=== PATIENT | female | born 1940 | race African-American/Black ===

== ENCOUNTER 2022-11-02 17:33 | Inpatient (IN) | payer OTHER, MEDICAID ==
[~2022-11-02] VITALS: Ht 154.9 cm; Wt 77.6 kg
[2022-11-02 19:18] LABS: BASOPHILS % 0.8 % (0.0-2.0); EOSINOPHILS % 0.4 % (0.0-5.0); HEMATOCRIT. 38.3 % (36.0-48.0); HEMOGLOBIN. 12.1 g/dL (12.0-16.0); LYMPHOCYTES % 43.9 % (20.0-50.0); MEAN CORPUSCULAR HEMOGLOBIN 24.4 pg (28.0-32.0); MEAN PLATELET VOLUME 8.4 fl (7.4-10.4); MONOCYTES % 5.7 % (2.0-8.0); NEUTROPHILS % 49.2 % (40.0-76.0); PLATELET 339 x1000/uL (130-400); RED BLOOD CELL COUNT 4.97 mill/uL (4.2-5.4); RED CELL DISTRIBUTION WIDTH 15.1 % (11.6-14.6)
[2022-11-02 19:24] LABS: CHLORIDE 109 mEq/L (98-107)
[2022-11-02] MEDS ORDERED: LABETALOL 5MG/ML SYR 20 MG/4 ML SYRINGE IV ONE (20:45)
[2022-11-02] MEDS ORDERED: ASPIRIN 81MG TABLET PO ONE (20:45)
[2022-11-03 11:55] VITALS: BP 166/99
[2022-11-03 12:00] VITALS: BP 166/99
[2022-11-03] MEDS ORDERED: HYDRALAZINE HCL 25MG TABLET PO SCH (14:00)
[2022-11-03] MEDS ORDERED: MECL-217 MT (14:31)
[2022-11-03] MEDS ORDERED: FLUO15CR2 TP (14:31)
[2022-11-03] MEDS ORDERED: ASPI-1497 PO (14:31)
[2022-11-03] MEDS ORDERED: OMEP40CA20 PO (14:31)
[2022-11-03] MEDS ORDERED: AMLO10TA80 PO (14:31)
[2022-11-03] MEDS ORDERED: UMEC1DIS INH (14:31)
[2022-11-03] MEDS ORDERED: HYDR25TA PO (14:31)
[2022-11-03] MEDS ORDERED: PARO40TA75 PO (14:31)
[2022-11-03] MEDS ORDERED: INSU100I22 SQ ×2 (14:31→14:44)
[2022-11-03] MEDS ORDERED: ALIR75PE5 SQ (14:31)
[2022-11-03] MEDS ORDERED: ALPR-340 PO (14:31)
[2022-11-03] MEDS ORDERED: CHOL2400 MC (14:31)
[2022-11-03] MEDS ORDERED: ONDA4TAB11 PO (14:31)
[2022-11-03] MEDS ORDERED: CETI10TA6 PO (14:31)
[2022-11-03] MEDS ORDERED: CARV12.545 PO (14:44)
[2022-11-03] MEDS ORDERED: EZET10TA13 PO (14:44)
[2022-11-03] MEDS ORDERED: CARV25TA47 PO (14:44)
[2022-11-03] MEDS ORDERED: INSU100C6 SQ (14:44)
[2022-11-03] MEDS ORDERED: ALBU90AE INH (14:44)
[2022-11-03] MEDS ORDERED: OMEG100017 PO (14:44)
[2022-11-03] MEDS ORDERED: FENO145T25 PO (14:44)
[2022-11-03] MEDS: ONDANSETRON HCL 4MG/2ML INJ IV PRN (14:56)
[2022-11-03] MEDS: ACETAMINOPHEN 325MG TABLET PO PRN (14:57)
[2022-11-03] MEDS: AMLODIPINE 10MG TABLET PO SCH (14:58)
[2022-11-03] MEDS ORDERED: DEXTROSE 50% WATER 50ML SYRINGE IV PRN (15:15)
[2022-11-03] MEDS: INSULIN LISPRO 100 UNITS/ML SUBCUT SCH ×2 (17:25→20:49)
[2022-11-03] MEDS: BLOOD SUGAR DIAGNOSTIC STRIP TEST SCH ×2 (17:25→20:49)
[2022-11-03] MEDS: OMEPRAZOLE 20MG CAPSULE EXTENDED RELEASE PO SCH (17:32)
[2022-11-03] MEDS: ENOXAPARIN 30MG/0.3ML SYR SUBCUT SCH (17:32)
[2022-11-03 17:35] LABS: T4 FREE 1.22 ng/dL (0.76-1.46)
[2022-11-03 20:00] VITALS: BP 126/71
[2022-11-03] MEDS: HYDRALAZINE HCL 50MG TABLET PO SCH (21:40)
[2022-11-04] VITALS: BP 112/46
[2022-11-04 04:00] VITALS: BP 156/62
[2022-11-04] MEDS: HYDRALAZINE HCL 50MG TABLET PO SCH ×3 (05:48→21:19)
[2022-11-04] MEDS: BLOOD SUGAR DIAGNOSTIC STRIP TEST SCH ×4 (06:41→21:19)
[2022-11-04] MEDS: INSULIN LISPRO 100 UNITS/ML SUBCUT SCH ×4 (06:42→21:19)
[2022-11-04 07:26] LABS: CLARITY URINE CLEAR (CLEAR); COLOR URINE YELLOW (YELLOW); KETONES URINE NEGATIVE (NEGATIVE); LEUKOCYTE ESTERASE URINE NEGATIVE (NEGATIVE); NITRITE URINE NEGATIVE (NEGATIVE); OCCULT BLOOD URINE NEGATIVE (NEGATIVE); PROTEIN URINE 1+ (NEGATIVE); SPECIFIC GRAVITY URINE 1.018 (1.005-1.030); UROBILINOGEN URINE 0.2 E.U./dL (0.2-1.0)
[2022-11-04 08:00] VITALS: BP 120/62
[2022-11-04] MEDS: AMLODIPINE 10MG TABLET PO SCH (09:15)
[2022-11-04] MEDS: OMEPRAZOLE 20MG CAPSULE EXTENDED RELEASE PO SCH (09:15)
[2022-11-04 10:45] LABS: BASOPHILS % 0.7 % (0.0-2.0); HEMATOCRIT. 38.8 % (36.0-48.0); LYMPHOCYTES % 33.9 % (20.0-50.0); MEAN CORPUSCULAR HEMOGLOBIN 24.5 pg (28.0-32.0); MEAN CORPUSCULAR VOLUME 78.9 fL (81.0-99.0); MEAN PLATELET VOLUME 8.5 fl (7.4-10.4); MONOCYTES % 6.7 % (2.0-8.0); NEUTROPHILS % 56.7 % (40.0-76.0); PLATELET 293 x1000/uL (130-400); RED BLOOD CELL COUNT 4.91 mill/uL (4.2-5.4); RED CELL DISTRIBUTION WIDTH 15.5 % (11.6-14.6)
[2022-11-04] MEDS ORDERED: BUDESONIDE 0.5MG/2ML NEB HHN SCH (12:15)
[2022-11-04] MEDS: ACETAMINOPHEN 325MG TABLET PO PRN (12:59)
[2022-11-04] MEDS ORDERED: LEVO-65 MT (13:47)
[2022-11-04] MEDS: LEVOFLOXACIN 500MG PREMIX 100 ML IV SCH (15:27)
[2022-11-04] MEDS: ENOXAPARIN 30MG/0.3ML SYR SUBCUT SCH (15:28)
[2022-11-04 16:00] VITALS: BP 123/60
[2022-11-04] MEDS ORDERED: NALOXONE HCL 0.4MG/ML VIAL IV PRN (16:30)
[2022-11-04] MEDS: TRAMADOL 50MG TABLET PO PRN (16:38)
[2022-11-04] MEDS: ONDANSETRON HCL 4MG/2ML INJ IV PRN (17:38)
[2022-11-04 20:00] VITALS: BP 100/66
[2022-11-04] MEDS: PROMETHAZINE HCL 6.25 MG/5 ML 118ML PO PRN (20:48)
[2022-11-05] VITALS: BP 103/60
[2022-11-05 04:00] VITALS: BP 124/63
[2022-11-05] MEDS: HYDRALAZINE HCL 50MG TABLET PO SCH ×3 (05:28→21:36)
[2022-11-05 06:47] LABS: BASOPHILS % 0.4 % (0.0-2.0); EOSINOPHILS % 2.5 % (0.0-5.0); HEMATOCRIT. 34.6 % (36.0-48.0); HEMOGLOBIN. 11.2 g/dL (12.0-16.0); LYMPHOCYTES % 39.9 % (20.0-50.0); MEAN CORPUSCULAR HEMOGLOBIN 24.8 pg (28.0-32.0); MEAN CORPUSCULAR VOLUME 76.3 fL (81.0-99.0); MEAN PLATELET VOLUME 8.6 fl (7.4-10.4); MONOCYTES % 8.1 % (2.0-8.0); NEUTROPHILS % 49.1 % (40.0-76.0); PLATELET 317 x1000/uL (130-400); RED BLOOD CELL COUNT 4.53 mill/uL (4.2-5.4); RED CELL DISTRIBUTION WIDTH 14.9 % (11.6-14.6)
[2022-11-05] MEDS: BLOOD SUGAR DIAGNOSTIC STRIP TEST SCH ×4 (07:44→21:34)
[2022-11-05] MEDS: INSULIN LISPRO 100 UNITS/ML SUBCUT SCH ×4 (07:45→21:41)
[2022-11-05 08:00] VITALS: BP 122/79
[2022-11-05] MEDS: ACETAMINOPHEN 325MG TABLET PO PRN (08:18)
[2022-11-05] MEDS: AMLODIPINE 10MG TABLET PO SCH (08:18)
[2022-11-05] MEDS: FAMOTIDINE 20MG TABLET PO SCH (08:18)
[2022-11-05 11:33] VITALS: BP 140/74
[2022-11-05] MEDS: TRAMADOL 50MG TABLET PO PRN (13:55)
[2022-11-05] MEDS: ENOXAPARIN 30MG/0.3ML SYR SUBCUT SCH (15:31)
[2022-11-05 15:50] VITALS: BP 127/57
[2022-11-05 20:00] VITALS: BP 145/71
[2022-11-05] MEDS: ONDANSETRON HCL 4MG/2ML INJ IV PRN (21:36)
[2022-11-06] VITALS: BP 113/34
[2022-11-06] MEDS: PROMETHAZINE HCL 6.25 MG/5 ML 118ML PO PRN (01:26)
[2022-11-06] MEDS: FAMOTIDINE 20MG TABLET PO SCH (06:32)
[2022-11-06] MEDS: HYDRALAZINE HCL 50MG TABLET PO SCH ×3 (06:33→21:14)
[2022-11-06] MEDS: BLOOD SUGAR DIAGNOSTIC STRIP TEST SCH ×4 (06:38→21:14)
[2022-11-06 07:20] LABS: BASOPHILS % 0.4 % (0.0-2.0); EOSINOPHILS % 2.6 % (0.0-5.0); HEMATOCRIT. 35.5 % (36.0-48.0); HEMOGLOBIN. 11.5 g/dL (12.0-16.0); LYMPHOCYTES % 45.4 % (20.0-50.0); MEAN CORPUSCULAR VOLUME 76.8 fL (81.0-99.0); MEAN PLATELET VOLUME 8.6 fl (7.4-10.4); MONOCYTES % 8.8 % (2.0-8.0); NEUTROPHILS % 42.8 % (40.0-76.0); PLATELET 312 x1000/uL (130-400); RED BLOOD CELL COUNT 4.62 mill/uL (4.2-5.4)
[2022-11-06 07:42] VITALS: BP 139/71
[2022-11-06] MEDS: INSULIN LISPRO 100 UNITS/ML SUBCUT SCH ×4 (07:48→21:00)
[2022-11-06] MEDS: AMLODIPINE 10MG TABLET PO SCH (09:08)
[2022-11-06] MEDS: ACETAMINOPHEN 325MG TABLET PO PRN (09:09)
[2022-11-06 12:00] VITALS: BP 134/55
[2022-11-06] MEDS: TRAMADOL 50MG TABLET PO PRN (14:03)
[2022-11-06] MEDS: LEVOFLOXACIN 500MG PREMIX 100 ML IV SCH (14:39)
[2022-11-06 16:00] VITALS: BP 152/63
[2022-11-06] MEDS: ONDANSETRON HCL 4MG/2ML INJ IV PRN (19:24)
[2022-11-06] MEDS: ENOXAPARIN 30MG/0.3ML SYR SUBCUT SCH (19:29)
[2022-11-06 20:00] VITALS: BP 137/63
[2022-11-07] VITALS: BP 144/66
[2022-11-07] MEDS: PROMETHAZINE HCL 6.25 MG/5 ML 118ML PO PRN ×2 (01:38→15:14)
[2022-11-07 04:00] VITALS: BP 132/74
[2022-11-07] MEDS: FAMOTIDINE 20MG TABLET PO SCH (06:41)
[2022-11-07] MEDS: HYDRALAZINE HCL 50MG TABLET PO SCH ×2 (06:42→15:15)
[2022-11-07] MEDS: BLOOD SUGAR DIAGNOSTIC STRIP TEST SCH ×3 (06:42→17:46)
[2022-11-07 08:00] VITALS: BP 118/64
[2022-11-07] MEDS: INSULIN LISPRO 100 UNITS/ML SUBCUT SCH ×3 (08:10→18:13)
[2022-11-07] MEDS: AMLODIPINE 10MG TABLET PO SCH (09:14)
[2022-11-07] MEDS: TRAMADOL 50MG TABLET PO PRN (09:15)
[2022-11-07 12:00] VITALS: BP 133/49
[2022-11-07] MEDS: ONDANSETRON HCL 4MG/2ML INJ IV PRN (12:50)
[2022-11-07] MEDS: ENOXAPARIN 30MG/0.3ML SYR SUBCUT SCH (15:15)
[2022-11-07 16:00] VITALS: BP 135/57
[2022-11-07 18:29] VITALS: BP 135/57
[2022-11-07 19:43] LABS: BASOPHILS % 0.7 % (0.0-2.0); EOSINOPHILS % 1.6 % (0.0-5.0); HEMATOCRIT. 37.1 % (36.0-48.0); HEMOGLOBIN. 11.8 g/dL (12.0-16.0); LYMPHOCYTES % 36.1 % (20.0-50.0); MEAN CORPUSCULAR HEMOGLOBIN 24.7 pg (28.0-32.0); MEAN CORPUSCULAR VOLUME 77.4 fL (81.0-99.0); MEAN PLATELET VOLUME 8.1 fl (7.4-10.4); MONOCYTES % 7.2 % (2.0-8.0); NEUTROPHILS % 54.4 % (40.0-76.0); PLATELET 360 x1000/uL (130-400); RED BLOOD CELL COUNT 4.79 mill/uL (4.2-5.4); RED CELL DISTRIBUTION WIDTH 15.3 % (11.6-14.6)
[2022-11-07 19:53] LABS: CHLORIDE 105 mEq/L (98-107)
[2022-11-08] MEDS ORDERED: LEVOFLOXACIN 500MG TABLET PO SCH (14:00)
== END 2022-11-07 20:15 | disposition home or self-care (01) | DRG 192 ==
LOC: ER 17:33 → EDBEDREQ 19:35 → 7WST 20:45 → EDBEDREQ 21:35 → EDBEDREQTM 21:35
PROVIDERS: ADMIT Internal Medicine; ATTEND Internal Medicine
DX: J44.1 Chronic obstructive pulmonary disease with (acute) exacerbation (principal); I16.0 Hypertensive urgency; E11.22 Type 2 diabetes mellitus with diabetic chronic kidney disease; N18.9 Chronic kidney disease, unspecified; E78.5 Hyperlipidemia, unspecified; I12.9 Hypertensive chronic kidney disease with stage 1 through stage 4 chronic kidney disease, or unspecified chronic kidney disease; E11.65 Type 2 diabetes mellitus with hyperglycemia; G90.8 Other disorders of autonomic nervous system; E05.90 Thyrotoxicosis, unspecified without thyrotoxic crisis or storm; Z96.653 Presence of artificial knee joint, bilateral; Z88.8 Allergy status to other drugs, medicaments and biological substances; Z90.710 Acquired absence of both cervix and uterus; Z90.49 Acquired absence of other specified parts of digestive tract
CPT/HCPCS: 36415; 71045; 78582; 80048; 80053; 80061; 81003; 82962; 83036; 83735; 83880; 84439; 84443; 84481; 84484; 85025; 85379; 93005; 93306; 97162; 99291; A9558; J1650; J1815; J1956; J2405; Q0169